=== PATIENT | male | born 1965 | race Asian ===

== ENCOUNTER 2019-05-21 16:07 | Emergency (ER) | payer OTHER ==
[2019-05-21 16:11] VITALS: BP 140/84; PULSE 76; TEMP 98.2
--- NOTE | 2019-05-21 16:23 | PDOC ---
History of Present Illness - General Chief Complaint: Respiratory Stated Complaint: COVID Time Seen by Provider: 05/21/19 16:11 History Source: Patient Exam Limitations: Clinical Condition - History of Present Illness Initial Comments: 05/21/19 16:18 Patient with h/o CAD present with complains of 3 days h/o throat discomfort, dry cough, nasal congestion and intermittent SOB. Denies fever, chills, N/V, CP, palpitations, dizziness. 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 Denies any other symptoms Is this a multiple visit Asthma Patient?: No Timing/Duration: other (3 days) Review of Systems - Review of Systems Able to Perform ROS?: Yes Is the patient limited Andorran proficient: No Constitutional: No: Chills, Fever, Weakness HEENTM: Yes: Symptoms Reported, See HPI, Nose Congestion. No: Eye Pain, Blurred Vision, Tearing, Recent change in vision, Double Vision, Cataracts, Ear Pain, Ocular Prothesis, Ear Discharge, Nose Pain, Tinnitus, Nose Bleeding, Hearing Loss, Throat Pain, Throat Swelling, Mouth Pain, Dental Problems, Difficulty Swallowing, Mouth Swelling, Other Respiratory: Yes: Symptoms reported, See HPI, Cough, Shortness of Breath (intermittent). No: Orthopnea, SOB with Exertion, SOB at Rest, Stridor, Wheezing, Productive cough, Hemoptysis, Other Cardiac (ROS): No: Symptoms Reported, See HPI, Chest Pain, Edema, Irregular Heart Rate, Lightheadedness, Palpitations, Syncope, Chest Tightness, Other ABD/GI: No: Symptoms Reported, Nausea, Vomiting Musculoskeletal: No: Symptoms Reported Integumentary: No: Symptoms Reported, Rash Neurological: No: Symptoms reported, Headache, Dizziness All Other Systems: Reviewed and Negative *Physical Exam - Vital Signs Last Vital Signs Temp Pulse Resp BP Pulse Ox 98.2 F 76 140/84 100 05/21/19 16:09 05/21/19 16:09 05/21/19 16:09 05/21/19 16:09 - Physical Exam General Appearance: Yes: Nourished, Appropriately Dressed. No: Apparent Distress HEENT: positive: ERROL, Normal ENT Inspection, Pharynx Normal Neck: positive: Supple Respiratory/Chest: positive: Lungs Clear, Normal Breath Sounds. negative: Chest Tender, Respiratory Distress, Accessory Muscle Use Cardiovascular: positive: Regular Rhythm, Regular Rate Musculoskeletal: positive: Normal Inspection Extremity: positive: Normal Inspection, Normal Range of Motion Integumentary: positive: Normal Color, Warm Neurologic: positive: Fully Oriented, Alert, Normal Mood/Affect, Normal Response, Motor Strength 5/5 ED Treatment Course - RADIOLOGY Radiology Studies Ordered: Category Date Time Status CHEST X-RAY PORTABLE* [RAD] Stat Radiology 05/21/19 16:11 Ordered Medical Decision Making - Medical Decision Making 05/21/19 16:20 Patient with h/o CAD present with complains of 3 days h/o throat discomfort, dry cough, nasal congestion and intermittent SOB. Denies fever, chills, N/V, CP, palpitations, dizziness. 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 Denies any other symptoms Clinical exam unremarkable. Pt Afebrile. lungs CTAB in NAD. given pt line of work, will test for covid. CXR ordered to r/o PNA 05/21/19 16:38 CXR shows no acute abnormality. Pt stable for discharge on conservative management to take OTC meds pending covid results Discharge - Discharge Information Problems reviewed: Yes Clinical Impression/Diagnosis: URI (upper respiratory infection) Qualifiers: URI type: unspecified viral URI Qualified Code(s): J06.9 - Acute upper respiratory infection, unspecified Condition: Stable Disposition: HOME - Admission No - Follow up/Referral - Patient Discharge Instructions Patient Printed Discharge Instructions: [facility]-Coronavirus Instructions Additional Instructions: Your chest x-ray shows no pneumonia. Take over the counter medications for cough and medications as needed. Increase fluid intake. You will be contacted with lab results in 3-5 days until then, wear mask at all times and refrain from public gatherings - Post Discharge Activity
[2019-05-21 16:38] VITALS: BMI 29.6
== END 2019-05-21 16:44 | disposition home or self-care (01) ==
LOC: JER 16:07
DX: Z03.818 Encounter for observation for suspected exposure to other biological agents ruled out (principal); J06.9 Acute upper respiratory infection, unspecified; I25.10 Atherosclerotic heart disease of native coronary artery without angina pectoris
CPT/HCPCS: 71045-TC-FY; 87798; 87804; 99283-25; U0002

== ENCOUNTER 2019-09-23 09:05 | Emergency (ER) | payer OTHER ==
[2019-09-23] MEDS ORDERED: SODIUM CHLORIDE 1,000 ML IV STA (09:23)
[2019-09-23 09:34] VITALS: BMI 34.4
--- NOTE | 2019-09-23 09:34 | PDOC ---
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 The pain is in the bilateral flank regions. The patient's father had a hx of prostate carcinoma so he has been being worked up for this. He recently had an MRI of the prostate region which showed multiple cysts some of which could not be ruled out for carcinoma based on the MRI so biopsy was suggested. He had 10 biopsies of the prostate in a recent procedure, one of which was suspicious for carcinoma. Denies dysuria, frequency, urgency, nausea, vomiting, chest pain, headache, abdominal pain, blurry vision. Denies recent travel. PCP: Marichuy Ness Urologist: Christopher Lam PSH: Cardiac surgeries, recent prostate biopsies, inguinal hernia repair Social Hx: Denies smoking, drinking, or other substance abuse Allergies: NKA, NKDA <Gato Beckford - Last Filed: 09/23/19 15:11> <Myrtle Boyer - Last Filed: 09/24/19 16:55> - General Chief Complaint: Pain, Acute Stated Complaint: KIDNEY PAIN Time Seen by Provider: 09/23/19 09:21 Past History - Medical History Cardiac Disorders: Yes (atrial fib/flutter s/p cardiovert 2018) COPD: No Diabetes: Yes (insulin) Other medical history: ASD/MVP/TR REPAIR 1992 - Psycho-Social/Smoking History Smoking History: Never smoked - Substance Abuse Hx (Audit-C & DAST Scrn) How often the patient has a drink containing alcohol: Monthly or less Score: In Men: 4 or > Positive; In Women: 3 or > Positive: 1 Screen Result (Pos requires Nsg. Audit-10AR): Negative In the last yr the pt used illegal drug/Rx for NonMed reason: No Score: Yes response is considered Positive: 0 Screen Result (Positive result requires Nsg. DAST-10): Negative <Gato Beckford - Last Filed: 09/23/19 15:11> <Myrtle Boyer - Last Filed: 09/24/19 16:55> - Medical History Allergies/Adverse Reactions: Allergies Allergy/AdvReac Type Severity Reaction Status Date / Time No Known Allergies Allergy Verified 09/23/19 09:25 Home Medications: Ambulatory Orders Apixaban [Eliquis] 5 mg PO BID 09/23/19 Atorvastatin Ca [Lipitor] 40 mg PO HS 09/23/19 Cholecalciferol (Vitamin D3) [Vitamin D3] 50,000 unit PO WEEKLY 09/23/19 Losartan Potassium 25 mg PO DAILY 09/23/19 Metformin HCl [Glucophage] 1,000 mg PO DAILY 09/23/19 Metoprolol Succinate 25 mg PO BID 09/23/19 [place]-3 Fatty Acids [[place]-3] 1,000 mg PO DAILY 09/23/19 Sulfamethoxazole/Trimethoprim [Bactrim Ds -] 1 tab PO BID #28 tablet 09/23/19 Review of Systems - Review of Systems Able to Perform ROS?: Yes Comments:: CONSTITUTIONAL: Present: fever, chills Absent: no fatigue EYES: Absent: visual changes ENT: Absent: ear pain, no sore throat CARDIOVASCULAR: Absent: chest pain, no palpitations RESPIRATORY: Absent: cough GI: Absent: abdominal pain, no nausea, no vomiting, no constipation, no diarrhea GENITOURINARY: Absent: dysuria, no frequency, no hematuria MUSKULOSKELETAL: Present: Back pain Absent: no arthralgia, no myalgia SKIN: Absent: rash NEURO: Absent: headache <Gato Beckford - Last Filed: 09/23/19 15:11> *Physical Exam - Vital Signs Last Vital Signs Temp Pulse Resp BP Pulse Ox 99.7 F H 107 H 24 H 145/78 99 09/23/19 09:07 09/23/19 09:07 09/23/19 09:07 09/23/19 09:07 09/23/19 09:07 - Physical Exam GENERAL: Well-appearing, well-nourished. No apparent distress. HEENT: Normocephalic, atraumatic. PERRL, EOM intact. CARDIOVASCULAR: Normal S1, S2. Regular rate and rhythm. PULMONARY: No evidence of respiratory distress. Lungs clear to auscultation bilaterally. No wheezing, rales or rhonchi. ABDOMEN: Soft, non-distended, non-tender. EXTREMITIES: There is bilateral CVA tenderness. Normal ROM in all four extremities. No gross deformities. SKIN: Warm, dry. No rash NEUROLOGICAL: No focal neurological deficits. <Gato Beckford - Last Filed: 09/23/19 15:11> - Vital Signs Last Vital Signs Temp Pulse Resp BP Pulse Ox 98.6 F 78 22 H 106/71 100 09/23/19 12:04 09/23/19 12:04 09/23/19 12:04 09/23/19 12:04 09/23/19 12:04 <Myrtle Boyer - Last Filed: 09/24/19 16:55> ED Treatment Course - LABORATORY CBC & Chemistry Diagram: 09/23/19 09:40 09/23/19 09:40 <Gato Beckford - Last Filed: 09/23/19 15:11> - LABORATORY CBC & Chemistry Diagram: 09/23/19 09:40 09/23/19 09:40 - ADDITIONAL ORDERS Additional order review: 09/23/19 09:40 Urine Culture - Preliminary Urine - Urine Clean Catch Lactose Fermenting Neg Bacilli 09/23/19 09:40 RBC 4.60 MCV 82.0 MCHC 32.6 RDW 14.1 MPV 8.1 Neutrophils % 85.1 H Lymphocytes % 6.7 L D Monocytes % 7.5 Eosinophils % 0.2 Basophils % 0.5 - RADIOLOGY Radiology Studies Ordered: Category Date Time Status ABDOMEN & PELVIS CT W/O CONTR [CT] Stat CT Scan 09/23/19 09:21 Completed CHEST PA & LAT [RAD] Stat Radiology 09/23/19 09:21 Completed - Medications Given in the ED: ED Medications Discontinued Medications Generic Name Dose Route Start Last Admin Trade Name Freq PRN Reason Stop Dose Admin Acetaminophen 1,000 mg 09/23/19 10:11 09/23/19 10:12 Ofirmev Injection - IVPB 09/23/19 10:12 1,000 mg ONCE ONE Administration Sodium Chloride 1,000 mls @ 1,000 mls/hr 09/23/19 09:23 09/23/19 09:53 Normal Saline - IV 09/23/19 10:22 1,000 mls/hr ASDIR STA Administration Morphine Sulfate 4 mg 09/23/19 10:53 09/23/19 11:15 Morphine Injection - IVPUSH 09/23/19 10:54 4 mg ONCE ONE Administration Trimethoprim/Sulfamethoxazole 1 each 09/23/19 11:36 09/23/19 11:54 Bactrim Ds - PO 09/23/19 11:37 1 each ONCE ONE Administration <Myrtle Boyer - Last Filed: 09/24/19 16:55> Medical Decision Making - Medical Decision Making 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 The pain is in the bilateral flank regions. The patient's father had a hx of prostate carcinoma so he has been being worked up for this. He recently had an MRI of the prostate region which showed multiple cysts some of which could not be ruled out for carcinoma based on the MRI so biopsy was suggested. He had 10 biopsies of the prostate in a recent procedure, one of which was suspicious for carcinoma. Vital Signs Temp Pulse Resp BP Pulse Ox 99.7 F H 107 H 24 H 145/78 99 09/23/19 09:07 09/23/19 09:07 09/23/19 09:07 09/23/19 09:07 09/23/19 09:07 DDx IBNLT: nepthrolithiasis, septic nephrolithiasis, prostate related pain/fever, prostatitis, UTI vs Pylonephritis, electrolyte/metabolic disturbance Plan: Labs, Urine, EKG, CXR, CT, IV hydration, analgesia, re-assess EKG: NS rate of 100, IRBBB, qrs 102, Normal/borderline Right axis deviation, no hypertrophy, TWI in V2, QTc 446, WI 200, Non specific ST and T wave abnormality - No prior for comparison Labs: Leukocytosis w/ left shift Urine: Trace blood, overall unremarkable without signs of infection CXR: Unremarkable and no acute pathology CT: Mildly enlagred prostate, left renal cyst. Re-assessment: Patient still in pain despite fluids and tylenol. - Giving morphine for pain control - Patient feeling much better and no longer in distress. MDM: Patient on anticoagulation so thrombosis much less likely however still possible. Patient presents with a fever, chills, and lower back pain 10 days after prostatic procedure and manipulation. The most logical source for the fever is the prostate region however the urine is not suggestive of an infection. Will give the patient a course of bactrim and have him follow up with his urologist to determine if he should take the full 6 week course of antibiotics to treat prostatitis. Patient states he can call his urologist on Wednesday and see him in the next week. I discussed the physical exam findings, ancillary test results and final diagnoses with the patient. I answered all of the patient's questions. The patient was satisfied with the care received and felt comfortable with the disc harge plan and treatment plan. The patient will call their primary care physician within 24 hours to arrange follow-up and will return to the Emergency Department with any new, persistent or worsening symptoms. Disposition: Home with uro follow up and bactrim. Tylenol for pain control. Please note, this clinical encounter is taking place during a federal and state health care emergency attributable to the novel Parra Virus pandemic. The [place] of the Department of Health and Human Services has declared, pursuant to the Public Health Service Act 319F-3 (42 U.S.C. 247d-6d), that a covered persons activities related to medical countermeasures against COVID-19 will be immune from liability under Federal and State law. <Gato Beckford - Last Filed: 09/23/19 15:11> Discharge - Discharge Information Problems reviewed: Yes - Admission No <Gato Beckford - Last Filed: 09/23/19 15:11> <Myrtle Boyer - Last Filed: 09/24/19 16:55> - Discharge Information Clinical Impression/Diagnosis: Fever and chills Condition: Improved Disposition: HOME - Additional Discharge Information Prescriptions: Sulfamethoxazole/Trimethoprim [Bactrim Ds -] 1 tab PO BID #28 tablet - Follow up/Referral Referrals: Tesha Ness MD [Primary Care Provider] - Christopher Lam MD [Staff Physician] - - Patient Discharge Instructions Patient Printed Discharge Instructions: Prostatitis (Alternative Therapy), DI for Acute Prostatitis Additional Instructions: You came into the ER with lower back pain and a fever after having a procedure on your prostate ten days ago. It is possible you have a prostate infection so we are giving you antibiotics for this. As discussed, please schedule a follow up appointment with your urologist this week to discuss if you should continue taking the antibiotics for the full 6 weeks. You must return to the Emergency Department with any new complaints, if your symptoms persist and do not improve or if you develop any other new or worsening concerns. As discussed, please call to follow up with your Primary Care physician in 1-2 days to discuss what happened to you in the emergency room, and make sure you are being looked after and taken care of. Your emergency room visit is not complete without this follow up appointment. Please read the attached handouts for further information about your ER visit and what you should do moving forward. Thank you for coming to the [facility]. We hope you feel better soon! Print Language: LITHUANIAN - Post Discharge Activity Work/Back to School Note: Back to Work
[2019-09-23] MEDS ORDERED: ACETAMINOPHEN INJECTION 100 ML IVPB ONE (09:47)
[2019-09-23 09:57] LABS: BASO % 0.5 % (0-2.0); EOS % 0.2 % (0-4.5); HEMATOCRIT 37.8 % (35.4-49); HEMOGLOBIN 12.3 GM/dL (11.7-16.9); LYMPH % 6.7 % (8-40); MCH 26.7 pg (25.7-33.7); MCHC 32.6 g/dl (32.0-35.9); MEAN PLT VOLUME 8.1 fl (7.5-11.1); MONO % 7.5 % (3.8-10.2); NEUT % 85.1 % (42.8-82.8); PLATELET COUNT 221 K/MM3 (134-434); RDW 14.1 % (11.9-15.9); WHITE BLOOD COUNT 13.4 K/mm3 (4.0-10.0)
[2019-09-23 10:02] LABS: EPI CELLS 2 /uL (0-25.1); HYALINE CASTS 0 /uL (0-3.1); PH,URINE 5.5 (5.0-8.0); URINE APPEARANCE CLEAR; URINE BACTERIA 19 /uL (0-1359); URINE BILIRUBIN NEGATIVE (NEGATIVE); URINE COLOR YELLOW; URINE GLUCOSE (UA) NEGATIVE (NEGATIVE); URINE KETONE NEGATIVE (NEGATIVE); URINE LEUK ESTERASE NEGATIVE (NEGATIVE); URINE NITRITE NEGATIVE (NEGATIVE); URINE PROTEIN NEGATIVE (NEGATIVE); URINE RBC 11 /uL (0-23.9); URINE UROBILINOGEN 0.2 mg/dL (0.2-1.0); URINE WBC 19 /uL (0-25.8)
[2019-09-23 10:04] LABS: INR 1.1 (0.83-1.09)
[2019-09-23 10:06] LABS: ACTIVATED PTT 38.7 SECONDS (25.2-36.5)
[2019-09-23] MEDS ORDERED: ACETAMINOPHEN 1000 MG/100 ML VIAL (NON FORMULARY) IVPB ONE (10:11)
[2019-09-23 10:22] LABS: ALBUMIN 4.2 g/dl (3.4-5.0); BILIRUBIN,TOTAL 0.7 mg/dL (0.2-1); BLOOD UREA NITROGEN 13.5 mg/dL (7-18); CALCIUM 9.2 mg/dL (8.5-10.1); CREATININE 0.9 mg/dL (0.55-1.3); POTASSIUM 3.9 mmol/L (3.5-5.1); TOT PROT 7.9 g/dl (6.4-8.2)
[2019-09-23] MEDS ORDERED: morphine CARPU-JECT 4 MG/1 ML DISP.SYRIN IVPUSH ONE (10:53)
--- NOTE | 2019-09-23 10:53 | PDOC ---
Documentation entered by Carlos Enrique Daily SCRIBE, acting as scribe for Myrtle Boyer MD. Myrtle Boyer MD: This documentation has been prepared by the Abimbola mejia Aaron, SCRIBE, under my direction and personally reviewed by me in its entirety. I confirm that the documentation accurately reflects all work, treatment, procedures, and medical decision making performed by me. 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 Pt recently had an MRI of the prostate prostate region which showed multiple cysts.. Pt had 10 biopsies of the prostate, and one was suspicious for carcinoma. Patient reports fever 100.7 upon arrival and took tylenol for pain and fever. The patient denies chest pain, shortness of breath, headache and dizziness. Denies cough, nausea, vomiting, diarrhea and constipation. Allergies: NKDA PCP: Marichuy Ness Urologist: Christopher Lam - Physicial Exam PE: 09/23/19 10:50 General: non-toxic appearing Abdomen: soft, nt, no rebound, no guarding Back: b/l CVA ttp Neuro: awake, alert, ambulatory with steady gait, speech fluent, face symmetric, no focal deficits - Medical Decision Making 09/23/19 10:51 54 yo M here with b/l flank pain since 3AM this morning, recent prostate biopsy ~2 weeks ago, possible pyelo vs. kidney stones vs. prostatitis vs. lower suspicion for PNA. Plan: -labs -urine -cxr -CT a/p non-con -IVF -pain control as needed -reassess This clinical encounter is taking place during a federal and state health care emergency attributable to the novel Par[place] Virus pandemic. The [place] of the Department of Health and Human Services has declared, pursuant to the Public Health Service Act 319F-3 (42 U.S.C. 247d-6d), that a covered persons activities related to medical countermeasures against COVID-19 will be immune from liability under Federal and State law. Will d/c with rx for abx and patient to f/u with his urologist. Discharge - Discharge Information Problems reviewed: Yes Clinical Impression/Diagnosis: Fever and chills Condition: Improved Disposition: HOME - Additional Discharge Information Prescriptions: Sulfamethoxazole/Trimethoprim [Bactrim Ds -] 1 tab PO BID #28 tablet - Follow up/Referral Referrals: Christopher Lam MD [Staff Physician] - Tesha Ness MD [Primary Care Provider] - - Patient Discharge Instructions Patient Printed Discharge Instructions: Prostatitis (Alternative Therapy), DI for Acute Prostatitis Additional Instructions: You came into the ER with lower back pain and a fever after having a procedure on your prostate ten days ago. It is possible you have a prostate infection so we are giving you antibiotics for this. As discussed, please schedule a follow up appointment with your urologist this week to discuss if you should continue taking the antibiotics for the full 6 weeks. You must return to the Emergency Department with any new complaints, if your sym ptoms persist and do not improve or if you develop any other new or worsening concerns. As discussed, please call to follow up with your Primary Care physician in 1-2 days to discuss what happened to you in the emergency room, and make sure you are being looked after and taken care of. Your emergency room visit is not complete without this follow up appointment. Please read the attached handouts for further information about your ER visit and what you should do moving forward. Thank you for coming to the [facility]. We hope you feel better soon! Print Language: FAROESE - Post Discharge Activity Work/Back to School Note: Back to Work
[2019-09-23] MEDS ORDERED: morphine SULFATE 4 MG/ML VIAL ONE (11:10)
[2019-09-23] MEDS ORDERED: SULFAMETHOXAZOLE/TRIMETHOPRIM 800MG/160MG D.S. TABLET PO ONE (11:36)
[2019-09-23] MEDS ORDERED: SULFAMETHOXAZOLE/TRIMETHOPRIM 800MG/160MG D.S. TABLET ONE (11:48)
[2019-09-23 12:05] VITALS: BP 106/71; PULSE 78; TEMP 98.6
--- NOTE | 2019-09-24 17:30 | EKG ---
Test Reason : Blood Pressure : / mmHG Vent. Rate : 100 BPM Atrial Rate : 100 BPM P-R Int : 200 ms QRS Dur : 102 ms QT Int : 346 ms P-R-T Axes : 052 068 065 degrees QTc Int : 446 ms POOR DATA QUALITY, INTERPRETATION MAY BE ADVERSELY AFFECTED NORMAL SINUS RHYTHM INCOMPLETE RIGHT BUNDLE BRANCH BLOCK NONSPECIFIC ST AND T WAVE ABNORMALITY ABNORMAL ECG NO PREVIOUS ECGS AVAILABLE Confirmed by MD Hansa, Scott ([id number]) on 09/24/2019 5:30:15 PM Referred By: Confirmed By:Scott Santo MD
== END 2019-09-23 12:05 | disposition home or self-care (01) ==
LOC: SUPCPDRO 09:05 → JER 09:05
PROC: 3E033NZ Introduction of Analgesics, Hypnotics, Sedatives into Peripheral Vein, Percutaneous Approach (ICD-10-PCS; principal; 2019-09-23)
PROC: 3E033GC Introduction of Other Therapeutic Substance into Peripheral Vein, Percutaneous Approach (ICD-10-PCS; 2019-09-23)
PROC: 3E0337Z Introduction of Electrolytic and Water Balance Substance into Peripheral Vein, Percutaneous Approach (ICD-10-PCS; 2019-09-23)
DX: R50.9 Fever, unspecified (principal)
CPT/HCPCS: 36415; 71046-TC-FY; 74176-TC; 80053; 81003; 85025; 85610; 85730; 87086; 87186; 93005; 93010; 99285-25; J0131; U0003

== ENCOUNTER 2022-01-06 14:09 | Emergency (ER) | payer OTHER ==
[2022-01-06 14:45] VITALS: BP 119/71; PULSE 88; RESP 18; TEMP 98.4; BMI 32.3
== END 2022-01-06 17:18 | disposition home or self-care (01) ==
LOC: JER 14:09
DX: U07.1 COVID-19 (principal)
CPT/HCPCS: 0241U-QW; 99283-25

== ENCOUNTER 2022-04-14 10:01 | Inpatient (IN) | payer OTHER ==
[2022-04-14 10:10] VITALS: BMI 32.3
[2022-04-14] MEDS ORDERED: ONDANSETRON 4 MG/2 ML VIAL IVPUSH ONE ×2 (10:17→12:46)
[2022-04-14] MEDS ORDERED: FAMOTIDINE 20 MG/50 ML IVPB 20 MG/50 ML MG IVPB ONE ×2 (10:17→10:51)
[2022-04-14] MEDS ORDERED: LACTATED RINGERS SOLUTION 1000 ML INFUS.BAG IV ONE (10:17)
[2022-04-14] MEDS ORDERED: morphine CARPU-JECT 4 MG/1 ML DISP.SYRIN IVPUSH ONE ×3 (10:17→13:59)
[2022-04-14] MEDS ORDERED: ONDANSETRON 4 MG/2 ML VIAL ONE ×2 (10:29→12:46)
[2022-04-14] MEDS ORDERED: morphine SULFATE 4 MG/ML VIAL ONE ×3 (10:29→14:05)
[2022-04-14 10:53] LABS: BASO % 0.3 % (0-2.0); EOS % 0.1 % (0-4.5); HEMATOCRIT 37.2 % (35.4-49); HEMOGLOBIN 12.4 GM/dL (11.7-16.9); MCH 26.5 pg (25.7-33.7); MCHC 33.3 g/dl (32.0-35.9); MEAN CELL VOLUME 79.7 fl (80-96); MEAN PLT VOLUME 7.9 fl (7.5-11.1); MONO % 3.1 % (3.8-10.2); NEUT % 86.5 % (42.8-82.8); PLATELET COUNT 241 10^3/uL (134-434); RBC 4.67 M/mm3 (4.00-5.60); RDW 14.9 % (11.9-15.9); VENOUS BASE EXCESS 0.9 mmol/L (-2-2); VENOUS O2 SATURATION 45.3 % (70-80); VENOUS PCO2 43.3 mmHg (38-52); VENOUS PH 7.396 (7.310-7.410); WHITE BLOOD COUNT 8.6 K/mm3 (4.0-10.0)
[2022-04-14 10:59] LABS: INR 0.99 (0.83-1.09); PROTHROMBIN TIME (PATIENT) 11.5 SEC (9.7-13.0)
[2022-04-14 11:01] LABS: ACTIVATED PTT 33.4 SECONDS (25.2-36.5)
[2022-04-14 11:16] LABS: BLOOD UREA NITROGEN 14.5 mg/dL (7-18); CALCIUM 9.2 mg/dL (8.5-10.1)
[2022-04-14 11:17] LABS: MAGNESIUM 1.7 mg/dL (1.8-2.4)
[2022-04-14 11:20] LABS: CREATININE 0.7 mg/dL (0.55-1.3)
[2022-04-14 11:21] LABS: TOT PROT 7.4 g/dl (6.4-8.2)
[2022-04-14 11:22] LABS: BILIRUBIN,TOTAL 0.5 mg/dL (0.2-1)
[2022-04-14] MEDS ORDERED: ACETAMINOPHEN 1000 MG/100 ML BAG IVPB ONE (12:11)
[2022-04-14] MEDS ORDERED: MAGNESIUM SULF 50% (8.12 MEQ/2 ML-1 GM VIAL) IVPB ONE (12:12)
[2022-04-14] MEDS ORDERED: MAGNESIUM 1GM/D5W - 1 GM/100 ML IVPB IVPB ONE (12:37)
[2022-04-14] MEDS ORDERED: ACETAMINOPHEN INJECTION 100 ML IVPB ONE ×2 (12:37→18:52)
[2022-04-14] MEDS ORDERED: ONDANSETRON 4 MG/2 ML VIAL IVPUSH PRN (13:25)
[2022-04-14] MEDS: LACTATED RINGERS SOLUTION 1,000 ML/1,000 ML INFUS.BAG IV SCH ×2 (18:26→23:33)
[2022-04-14] MEDS: LOSARTAN POTASSIUM 25 MG TABLET PO SCH (18:26)
[2022-04-14] MEDS: ACETAMINOPHEN 1000 MG/100 ML BAG IVPB PRN (18:55)
[2022-04-14] MEDS ORDERED: METOPROLOL TARTRATE 5 MG/5 ML VIAL IVPUSH PRN (23:34)
[2022-04-15] MEDS: ATORVASTATIN CA 40 MG TABLET (FP) PO SCH (00:54)
[2022-04-15] MEDS: metoPROLOL SUCCINATE 25 MG TAB.SR.24H (FP) PO SCH ×2 (00:54→10:42)
[2022-04-15] MEDS: ACETAMINOPHEN 1000 MG/100 ML BAG IVPB PRN ×3 (03:02→18:35)
[2022-04-15] MEDS ORDERED: HYDROmorphone HCl 2 MG/ML VIAL IVPB ONE (07:39)
[2022-04-15] MEDS ORDERED: HYDROmorphone HCl 2 MG/ML VIAL ONE (07:58)
[2022-04-15 08:03] LABS: BASO % 0.2 % (0-2.0); EOS % 0.5 % (0-4.5); HEMATOCRIT 35.7 % (35.4-49); HEMOGLOBIN 11.6 GM/dL (11.7-16.9); LYMPH % 22.3 % (8-40); MCHC 32.4 g/dl (32.0-35.9); MEAN CELL VOLUME 80.3 fl (80-96); MEAN PLT VOLUME 7.9 fl (7.5-11.1); MONO % 14.2 % (3.8-10.2); NEUT % 62.8 % (42.8-82.8); PLATELET COUNT 235 10^3/uL (134-434); RBC 4.44 M/mm3 (4.00-5.60); RDW 14.7 % (11.9-15.9); WHITE BLOOD COUNT 5.3 K/mm3 (4.0-10.0)
[2022-04-15] MEDS ORDERED: HYDROmorphone HCl 2 MG/ML VIAL IVPUSH PRN (08:17)
[2022-04-15 08:33] LABS: BLOOD UREA NITROGEN 13.4 mg/dL (7-18)
[2022-04-15 08:35] LABS: CALCIUM 8.8 mg/dL (8.5-10.1)
[2022-04-15 08:37] LABS: CREATININE 0.7 mg/dL (0.55-1.3)
[2022-04-15] MEDS ORDERED: PNEUMOC 20-VAL CONJ-DIP CRM/PF 0.5 ML SYRINGE IM ONE (10:00)
[2022-04-15] MEDS: LOSARTAN POTASSIUM 25 MG TABLET PO SCH (10:42)
[2022-04-15] MEDS: METOPROLOL TARTRATE 5 MG/5 ML VIAL IVPB SCH ×4 (10:46→22:15)
[2022-04-15] MEDS: LACTATED RINGERS SOLUTION 1,000 ML/1,000 ML INFUS.BAG IV SCH ×2 (10:49→14:14)
[2022-04-15 11:50] LABS: EPI CELLS 17 /uL (0-25.1); HYALINE CASTS 2 /uL (0-3.1); PH,URINE 5.5 (5.0-8.0); URINE APPEARANCE CLEAR; URINE BACTERIA 15 /uL (0-1359); URINE BILIRUBIN NEGATIVE (NEGATIVE); URINE COLOR YELLOW; URINE GLUCOSE (UA) NEGATIVE (NEGATIVE); URINE KETONE 2+ (NEGATIVE); URINE LEUK ESTERASE NEGATIVE (NEGATIVE); URINE NITRITE NEGATIVE (NEGATIVE); URINE PROTEIN TRACE (NEGATIVE); URINE RBC 59 /uL (0-23.9); URINE UROBILINOGEN 0.2 mg/dL (0.2-1.0); URINE WBC 29 /uL (0-25.8)
[2022-04-15 12:05] LABS: MAGNESIUM 1.9 mg/dL (1.8-2.4)
[2022-04-15] MEDS: INSULIN SLIDING SCALE (NOVOLOG) 1 VIAL SQ SCH ×3 (12:16→22:15)
[2022-04-15] MEDS ORDERED: DEXTROSE 50%-WATER 25 GM/50 ML DISP.SYRIN IVPUSH PRN (17:35)
[2022-04-15] MEDS ORDERED: LORazepam 2 MG/ML SDV VIAL IVPUSH PRN (20:00)
[2022-04-15] MEDS: FAMOTIDINE 20 MG/50 ML IVPB 20 MG/50 ML MG IVPB SCH (22:13)
[2022-04-15] MEDS: HEPARIN NA (PORCINE) 5,000 UNITS/ML 1ML VIAL SQ SCH (22:13)
[2022-04-15] MEDS: HYDROmorphone HCl 2 MG/ML VIAL IVPUSH PRN (22:34)
[2022-04-16] MEDS ORDERED: TETRACAINE/BENZOCAINE/BUTAMBEN 20 GM SPR TP ONE (01:37)
[2022-04-16] MEDS: HYDROmorphone HCl 2 MG/ML VIAL IVPUSH PRN (03:07)
[2022-04-16] MEDS: ATORVASTATIN CA 40 MG TABLET (FP) PO SCH ×2 (04:16→23:14)
[2022-04-16] MEDS: ACETAMINOPHEN 1000 MG/100 ML BAG IVPB PRN (05:18)
[2022-04-16] MEDS: METOPROLOL TARTRATE 5 MG/5 ML VIAL IVPB SCH ×3 (07:27→14:57)
[2022-04-16] MEDS: INSULIN SLIDING SCALE (NOVOLOG) 1 VIAL SQ SCH ×4 (07:27→23:14)
[2022-04-16] MEDS: FAMOTIDINE 20 MG/50 ML IVPB 20 MG/50 ML MG IVPB SCH (10:17)
[2022-04-16] MEDS: HEPARIN NA (PORCINE) 5,000 UNITS/ML 1ML VIAL SQ SCH ×2 (10:18→23:14)
[2022-04-16] MEDS: LOSARTAN POTASSIUM 25 MG TABLET PO SCH (10:18)
[2022-04-16] MEDS ORDERED: LORazepam 1 MG TABLET PO PRN (14:16)
[2022-04-16] MEDS ORDERED: oxyCODONE HCL 5 MG TABLET PO PRN (15:55)
[2022-04-16] MEDS ORDERED: ACETAMINOPHEN 325 MG TABLET (FP) PO PRN (15:55)
[2022-04-16] MEDS: metoPROLOL SUCCINATE 25 MG TAB.SR.24H (FP) PO SCH (23:15)
[2022-04-17] MEDS: INSULIN SLIDING SCALE (NOVOLOG) 1 VIAL SQ SCH ×2 (07:53→12:48)
[2022-04-17] MEDS ORDERED: PANTOPRAZOLE 40 MG TABLET PO SCH (10:00)
[2022-04-17] MEDS: metoPROLOL SUCCINATE 25 MG TAB.SR.24H (FP) PO SCH (11:30)
[2022-04-17] MEDS: HEPARIN NA (PORCINE) 5,000 UNITS/ML 1ML VIAL SQ SCH ×2 (11:30→12:44)
[2022-04-17] MEDS: LOSARTAN POTASSIUM 25 MG TABLET PO SCH (11:30)
[2022-04-17 15:15] VITALS: BP 104/60; PULSE 65; RESP 18; TEMP 98.3
== END 2022-04-17 15:55 | disposition home or self-care (01) | DRG 390 ==
LOC: JER 10:01 → JERBED 12:48 → J7W 20:54
PROVIDERS: ADMIT Internal Medicine; ATTEND Internal Medicine
PROC: 0D9670Z Drainage of Stomach with Drainage Device, Via Natural or Artificial Opening (ICD-10-PCS; principal; 2022-04-14)
DX: K56.609 Unspecified intestinal obstruction, unspecified as to partial versus complete obstruction (principal); E11.9 Type 2 diabetes mellitus without complications; I10 Essential (primary) hypertension; E78.5 Hyperlipidemia, unspecified; I25.119 Atherosclerotic heart disease of native coronary artery with unspecified angina pectoris; E66.09 Other obesity due to excess calories; Z68.31 Body mass index [BMI] 31.0-31.9, adult
CPT/HCPCS: 0241U-QW; 36415; 71045-TC-FY; 74019-TC-FY; 74176-TC; 74177-TC; 76705-TC; 80048; 80053; 81003; 82803; 82962; 83605; 83690; 83735; 84484; 85025; 85610; 85730; 87086; 93005; 93010; 93306-TC; 99285-25; J1644; Q9967

== ENCOUNTER 2022-09-15 09:23 | Emergency (ER) | payer OTHER ==
[2022-09-15] MEDS ORDERED: ASPIRIN 81 MG CHEWABLE TABLETS PO ONE (09:37)
[2022-09-15 09:50] VITALS: BP 126/78; PULSE 75; RESP 17; TEMP 97.9; BMI 30.9
[2022-09-15] MEDS ORDERED: ASPIRIN 81 MG CHEWABLE TABLETS ONE (09:53)
[2022-09-15 10:06] LABS: BASO % 0.7 % (0-2.0); EOS % 1.3 % (0-4.5); HEMATOCRIT 40.1 % (35.4-49); HEMOGLOBIN 12.8 GM/dL (11.7-16.9); LYMPH % 27.8 % (8-40); MCH 25.9 pg (25.7-33.7); MCHC 31.8 g/dl (32.0-35.9); MEAN CELL VOLUME 81.2 fl (80-96); MEAN PLT VOLUME 8.2 fl (7.5-11.1); MONO % 8.7 % (3.8-10.2); NEUT % 61.5 % (42.8-82.8); PLATELET COUNT 239 10^3/uL (134-434); RBC 4.94 M/mm3 (4.00-5.60); RDW 14.6 % (11.9-15.9)
[2022-09-15 10:32] LABS: POTASSIUM 4.3 mmol/L (3.5-5.1)
[2022-09-15 10:35] LABS: CALCIUM 9.5 mg/dL (8.5-10.1)
[2022-09-15 10:36] LABS: ALBUMIN 3.8 g/dl (3.4-5.0); MAGNESIUM 1.8 mg/dL (1.8-2.4)
[2022-09-15 10:38] LABS: CREATININE 0.8 mg/dL (0.55-1.3)
[2022-09-15 10:39] LABS: BILIRUBIN,TOTAL 0.4 mg/dL (0.2-1); TOT PROT 7.5 g/dl (6.4-8.2)
== END 2022-09-15 14:25 | disposition home or self-care (01) ==
LOC: JER 09:23
DX: I25.10 Atherosclerotic heart disease of native coronary artery without angina pectoris (principal); R07.2 Precordial pain; R06.02 Shortness of breath
CPT/HCPCS: 36415; 71046-TC-FY; 80053; 82550; 83036; 83735; 84484; 85025; 93005; 93010; 99285-25

== ENCOUNTER 2023-09-23 15:02 | Emergency (ER) | payer OTHER ==
[2023-09-23 15:10] VITALS: BP 120/77; PULSE 116; RESP 19; TEMP 99.3; BMI 31.9
[2023-09-23] MEDS ORDERED: ONDANSETRON 4 MG/2 ML VIAL ONE (15:21)
[2023-09-23 15:49] LABS: THROAT:GRP A STREP NOT DETECTED (NOTDETECTED)
[2023-09-23] MEDS: SODIUM CHLORIDE 1,000 ML IV STA (15:54)
[2023-09-23] MEDS: ONDANSETRON 4 MG/2 ML VIAL IVPUSH ONE (15:54)
[2023-09-23] MEDS ORDERED: KETOROLAC TROMETHAMINE 15 MG/ML VIAL ONE (15:55)
[2023-09-23] MEDS ORDERED: ACETAMINOPHEN 500 MG TABLET (FP) ONE (15:55)
[2023-09-23] MEDS: KETOROLAC TROMETHAMINE 15 MG/ML VIAL IVPUSH ONE (15:59)
[2023-09-23] MEDS: ACETAMINOPHEN 500 MG TABLET (FP) PO ONE (16:00)
== END 2023-09-23 16:50 | disposition home or self-care (01) ==
LOC: JER 15:02 → JERFT 15:02
PROC: 3E0333Z Introduction of Anti-inflammatory into Peripheral Vein, Percutaneous Approach (ICD-10-PCS; principal; 2023-09-23)
PROC: 3E033GC Introduction of Other Therapeutic Substance into Peripheral Vein, Percutaneous Approach (ICD-10-PCS; 2023-09-23)
PROC: 3E0337Z Introduction of Electrolytic and Water Balance Substance into Peripheral Vein, Percutaneous Approach (ICD-10-PCS; 2023-09-23)
DX: R50.9 Fever, unspecified (principal); R05.9 Cough, unspecified; R51.9 Headache, unspecified; M79.10 Myalgia, unspecified site; U07.1 COVID-19
CPT/HCPCS: 0241U-QW; 87651; 99284-25

== ENCOUNTER 2023-09-28 16:41 | Emergency (ER) | payer OTHER ==
[2023-09-28] MEDS ORDERED: ASPIRIN 81 MG CHEWABLE TABLETS ONE (16:48)
[2023-09-28] MEDS: ASPIRIN 81 MG CHEWABLE TABLETS PO ONE (16:52)
[2023-09-28 16:54] VITALS: BP 127/79; PULSE 70; RESP 16; TEMP 98.4; BMI 31.9
[2023-09-28 17:24] LABS: EOS % 2.7 % (0-4.5); HEMATOCRIT 37.3 % (35.4-49); HEMOGLOBIN 12.1 GM/dL (11.7-16.9); LYMPH % 32.4 % (8-40); MCH 26.2 pg (25.7-33.7); MCHC 32.5 g/dl (32.0-35.9); MEAN CELL VOLUME 80.5 fl (80-96); MEAN PLT VOLUME 7.3 fl (7.5-11.1); MONO % 6.9 % (3.8-10.2); PLATELET COUNT 254 10^3/uL (134-434); RBC 4.63 M/mm3 (4.00-5.60); RDW 14.4 % (11.9-15.9); WHITE BLOOD COUNT 6.4 K/mm3 (4.0-10.0)
[2023-09-28 17:37] LABS: INR 1.04 (0.83-1.09); PROTHROMBIN TIME (PATIENT) 11.9 SEC (9.7-13.0)
[2023-09-28 17:40] LABS: ACTIVATED PTT 40.8 SECONDS (25.2-36.5)
[2023-09-28 17:47] LABS: CHLORIDE 102 mmol/L (98-107); POTASSIUM 4.3 mmol/L (3.5-5.1); SODIUM 137 mmol/L (136-145)
[2023-09-28 17:49] LABS: ALBUMIN 3.7 g/dl (3.4-5.0); ANION GAP 5 mmol/L (4-13); CALCIUM 9.6 mg/dL (8.5-10.1); CO2 31 mmol/L (21-32); GLUCOSE,RANDOM 105 mg/dL (74-106); MAGNESIUM 1.8 mg/dL (1.8-2.4)
[2023-09-28 17:52] LABS: CREATININE 0.9 mg/dL (0.55-1.3); SGOT/AST 22 U/L (15-37); SGPT/ALT 31 U/L (13-61)
[2023-09-28 17:54] LABS: BILIRUBIN,TOTAL 0.4 mg/dL (0.2-1); TOT PROT 7.2 g/dl (6.4-8.2)
[2023-09-28 17:55] LABS: ALK PHOS 69 U/L (45-117); N-TERMINAL BNP 56.4 pg/ml (5-125)
[2023-09-28 18:15] LABS: ERYTHROCYTE SEDIMENTATION RATE 13 mm/hr (0-20)
== END 2023-09-28 19:58 | disposition home or self-care (01) ==
LOC: JER 16:41 → JERFT 16:41 → JER 19:58
DX: R07.9 Chest pain, unspecified (principal); R10.9 Unspecified abdominal pain; R94.31 Abnormal electrocardiogram [ECG] [EKG]
CPT/HCPCS: 36415; 71046-TC-FY; 80053; 83690; 83735; 83880; 84484; 85025; 85610; 85651; 85730; 86140; 93005; 93010; 99285-25

== ENCOUNTER 2024-05-04 08:24 | Day surgery (SDC) | payer OTHER ==
[2024-05-01 14:55] VITALS: BMI 32.9
[2024-05-04 08:47] VITALS: RESP 16
[2024-05-04] MEDS ORDERED: BACITRACIN ZINC 15 GM TUBE TOPICAL OINTMENT ONE (09:34)
[2024-05-04] MEDS ORDERED: LACTATED RINGERS SOLUTION 1,000 ML IV SCH (10:15)
[2024-05-04] MEDS ORDERED: MIDAZOLAM HCL 2 MG/2 ML SINGLE DOSE VIAL ONE (10:30)
[2024-05-04] MEDS ORDERED: FENTANYL CITRATE/PF 50 MCG/ML VIAL ONE (10:30)
[2024-05-04] MEDS ORDERED: PROPOFOL 20 ML ONE (10:58)
[2024-05-04 12:13] VITALS: PULSE 76; TEMP 97.6
[2024-05-04 12:29] VITALS: BP 110/64
== END 2024-05-04 12:50 | disposition home or self-care (01) ==
LOC: FASU 08:24
PROVIDERS: ATTEND Urology
PROC: 0VB03ZX Excision of Prostate, Percutaneous Approach, Diagnostic (ICD-10-PCS; principal; 2024-05-04 10:59)
DX: R97.20 Elevated prostate specific antigen [PSA] (principal)
CPT/HCPCS: 82962; 88305-TC; 88342-TC

== ENCOUNTER 2024-12-24 10:08 | Emergency (ER) | payer OTHER ==
[2024-12-24 10:26] VITALS: BP 100/59; PULSE 69; RESP 18; TEMP 98.1; BMI 32.8
== END 2024-12-24 11:55 | disposition home or self-care (01) ==
LOC: JER 10:08
PROC: 2W3RX1Z Immobilization of Left Lower Leg using Splint (ICD-10-PCS; principal; 2024-12-24)
DX: S89.92XA Unspecified injury of left lower leg, initial encounter (principal); X50.1XXA Overexertion from prolonged static or awkward postures, initial encounter
CPT/HCPCS: 73562-TC-LT-FY; 93971-TC-RT; 99284-25